=== PATIENT | female | born 1990 | race Caucasian/White ===

== ENCOUNTER 2021-09-13 14:45 | Outpatient (CLI) | payer OTHER | END 2021-09-13 14:46 | disposition home or self-care (01) | LOC: DTY/OP 14:45 | PROVIDERS: ATTEND Surgery | DX: E66.01 Morbid (severe) obesity due to excess calories (principal) | CPT/HCPCS: 97802 ==

== ENCOUNTER 2021-10-16 11:06 | Outpatient (CLI) | payer SELFPAY ==
[2021-10-16 13:35] LABS: #Basophils 0.1 10x3/uL (0.0-0.2); #Eosinphils 0.1 10x3/uL (0.0-0.5); #Monocytes 0.7 10x3/uL (0.0-1.1); #Neutrophils 5.6 10x3/uL (1.5-8.4); %Basophils 0.7 % (0.0-2.0); %Eosinophils 1.4 % (0.0-6.0); %Lymphocytes 25.2 % (18.0-47.0); %Neutrophils 64.2 % (40.0-75.0); Hemoglobin 13.8 g/dL (12.0-15.5); Mean Corpuscular HGB CONC 33.3 g/dL (32.0-36.0); Mean Corpuscular Hemoglobin 29.9 pg (27.0-33.0); Mean Corpuscular Volume 89.8 fl (81.6-98.3); Mean Platelet Volume 10.8 fl (7.4-10.4); Platelet Count 307 10x3/uL (150-450); Red Blood Cell (RBC) Count 4.61 10x6/uL (3.90-5.03); White Blood Cell (WBC) Count 8.7 10x3/uL (3.5-10.5)
[2021-10-16 13:58] LABS: BHCG - Serum Negative (NEGATIVE); Pregs Control Background? CLEAR/WHITE (CLR/WHITE); Pregs Control Bar Appear? YES (CONTROL BAR)
[2021-10-16 14:07] LABS: ALT (SGPT) 52 U/L (8-55); AST (SGOT) 35 U/L (5-34); Albumin 4.6 g/dL (3.5-5.0); Alkaline Phosphatase 60 U/L (40-110); Anion Gap 14 mmol/L (10-20); BUN (Urea Nitrogen) 13 mg/dL (7.0-18.7); Bilirubin, Total 0.5 mg/dL (0.2-1.2); Calc. Creatinine Clearance 0 mL/min (70-130); Calcium 9.8 mg/dL (7.8-10.44); Carbon Dioxide 25 mmol/L (22-29); Chloride 105 mmol/L (98-107); Globulin 3.3 g/dL (2.4-3.5); Glucose 81 mg/dL (70-105); Potassium 4.2 mmol/L (3.5-5.1); Protein, Total 7.9 g/dL (6.0-8.3); Sodium 140 mmol/L (136-145)
[2021-10-16 20:34] LABS: Hemoglobin A1c 5.2 % (4.0-6.0)
[2021-10-17 01:00] LABS: SARS-CoV-2 PCR by NAA Not Detected (NotDetected)
== END 2021-10-16 11:07 | disposition home or self-care (01) ==
LOC: LABBT 11:06
PROVIDERS: ATTEND Surgery
DX: Z01.818 Encounter for other preprocedural examination (principal); Z20.822 Contact with and (suspected) exposure to COVID-19
CPT/HCPCS: 71046; 80053; 83036; 84703; 85025; 93005; 93010; U0003; U0005

== ENCOUNTER 2021-10-21 07:40 | Inpatient (IN) | payer OTHER, SELFPAY ==
[2021-10-18 11:06] VITALS: BMI 50.5
[2021-10-21] MEDS ORDERED: ceFAZolin 2 GM/DEX 5% 100 ML BAG ONE (08:33)
[2021-10-21] MEDS ORDERED: Midazolam HCl 2 mg/2 ml Vial ONE ×2 (09:23→10:49)
[2021-10-21] MEDS ORDERED: Lidocaine 2% Jelly 5 ML TUBE ONE (10:49)
[2021-10-21] MEDS ORDERED: Fentanyl 250 MCG/5 ML VIAL ONE (10:49)
[2021-10-21] MEDS ORDERED: Bupivacaine 0.25% 10 ML VIAL ONE ×2 (10:52)
[2021-10-21] MEDS ORDERED: Lidocaine 1% w/Epinephrine 1:100K 30 ML VIAL ONE (10:52)
[2021-10-21] MEDS ORDERED: Lidocaine 1% PF 5 ML VIAL ONE (11:08)
[2021-10-21] MEDS ORDERED: Dexamethasone 20 MG/5 ML VIAL ONE (11:08)
[2021-10-21] MEDS ORDERED: Glycopyrrolate 0.2 MG/ML 5 ML SYRINGE ONE (11:08)
[2021-10-21] MEDS ORDERED: Rocuronium Bromide 10 MG/ML (10ML VIAL) ONE (11:08)
[2021-10-21] MEDS ORDERED: PROPOFOL 200 MG/20 ML VIAL ONE (11:08)
[2021-10-21] MEDS ORDERED: Ondansetron PF 4 MG/2 ML Vial ONE ×2 (11:08→13:05)
[2021-10-21] MEDS ORDERED: Succinylcholine 200 MG/10 ml SYRINGE FS ONE (11:08)
[2021-10-21] MEDS ORDERED: Dextrose 5% in Water 1,000 ML IV PRN (12:30)
[2021-10-21] MEDS ORDERED: diphenhydrAMINE 50 MG/ML VIAL IVP PRN (12:30)
[2021-10-21] MEDS ORDERED: Promethazine HCl 25 MG/ML VIAL IM PRN ×3 (12:30→13:15)
[2021-10-21] MEDS ORDERED: Dextrose 50% Abboject 50 ML SYRINGE SLOW IVP PRN (12:30)
[2021-10-21] MEDS ORDERED: hydrALAZINE 20 MG/ML VIAL SLOW IVP PRN (12:30)
[2021-10-21] MEDS ORDERED: Hydrocodone-Acetamin 15 ML UDCUP PO PRN (12:30)
[2021-10-21] MEDS ORDERED: Ondansetron PF 4 MG/2 ML Vial IVP PRN (12:30)
[2021-10-21] MEDS ORDERED: Promethazine HCl 25 MG/ML VIAL IVPB PRN (12:32)
[2021-10-21] MEDS ORDERED: Ondansetron HCl/PF 4 MG/2 ML Vial IVP PRN (12:32)
[2021-10-21] MEDS ORDERED: Zolpidem Tartrate 5 MG TAB PO PRN (13:15)
[2021-10-21] MEDS ORDERED: diphenhydrAMINE 25 MG CAP PO PRN (13:15)
[2021-10-21] MEDS ORDERED: Naloxone HCl 0.4 mg/ml Vial IV PRN (13:15)
[2021-10-21] MEDS ORDERED: diphenhydrAMINE 50 MG/ML VIAL IM/IV PRN (13:15)
[2021-10-21] MEDS ORDERED: Morphine Sulfate 100 MG in Dextrose 5% in Water 98 ML IV SCH (13:15)
[2021-10-21] MEDS ORDERED: Fentanyl 100 MCG/2 ML VIAL ONE (13:24)
[2021-10-21] MEDS ORDERED: Promethazine HCl 25 MG/ML VIAL ONE (13:30)
[2021-10-21] MEDS ORDERED: CEFAZOLIN 2 GM in Premix Bag 1 BAG IVPB SCH (16:00)
[2021-10-21] MEDS: Ketorolac Tromethamine 30 MG/ML VIAL IVP SCH ×2 (17:14→23:36)
[2021-10-21] MEDS: Ondansetron PF 4 MG/2 ML Vial IVP PRN (17:14)
[2021-10-21] MEDS: D5 1/2 NS w/20 mEq KCL 1,000 ML IV SCH ×3 (17:15→21:11)
[2021-10-21] MEDS: CEFAZOLIN 2 GM in Premix Bag 1 BAG IVPB SCH (19:36)
[2021-10-22] MEDS: CEFAZOLIN 2 GM in Premix Bag 1 BAG IVPB SCH (03:17)
[2021-10-22] MEDS: Ondansetron PF 4 MG/2 ML Vial IVP PRN (03:17)
[2021-10-22] MEDS: Ketorolac Tromethamine 30 MG/ML VIAL IVP SCH ×2 (05:23→11:08)
[2021-10-22 06:14] LABS: #Lymphocytes 1.6 thou/uL (1.20-3.40); #Neutrophils 10.6 thou/uL (1.40-6.50); %Basophils 0.1 % (0.0-1.0); %Eosinophils 0.1 % (0.0-10.0); %Lymphocytes 11.8 % (21.0-51.0); %Monocytes 7.5 % (0.0-10.0); %Neutrophils 80.5 % (42.0-75.0); Hemoglobin 13.3 g/dL (12.0-16.0); Mean Corpuscular HGB CONC 33.1 g/dL (32.0-36.0); Mean Corpuscular Volume 93.4 fL (78.0-98.0); Mean Platelet Volume 8.1 fL (7.4-10.4); Platelet Count 276 thou/uL (130-400); Red Blood Cell (RBC) Count 4.31 mill/uL (4.20-5.40); White Blood Cell (WBC) Count 13.1 thou/uL (4.8-10.8)
[2021-10-22 06:33] LABS: Anion Gap 12 mmol/L (10-20); BUN (Urea Nitrogen) 9 mg/dL (7.0-18.7); Calc. Creatinine Clearance 240 mL/min (70-130); Calcium 9.1 mg/dL (7.8-10.44); Carbon Dioxide 23 mmol/L (22-29); Chloride 106 mmol/L (98-107); Glucose 101 mg/dL (70-105); Sodium 137 mmol/L (136-145)
[2021-10-22] MEDS: Hydrocodone-Acetamin 15 ML UDCUP PO PRN ×2 (07:42→11:43)
[2021-10-22] MEDS ORDERED: Enoxaparin Sodium 40 MG/0.4 ML SYRINGE SC SCH (09:00)
[2021-10-22] MEDS ORDERED: Pantoprazole 40 MG VIAL IVP SCH (09:00)
[2021-10-22] MEDS: D5 1/2 NS w/20 mEq KCL 1,000 ML IV SCH (11:50)
[2021-10-22 12:07] VITALS: BP 105/69; TEMP 97.8
== END 2021-10-22 13:20 | disposition home or self-care (01) | DRG 621 ==
LOC: SURG A 07:40 → SURG B 15:25
PROVIDERS: ADMIT Surgery; ATTEND Surgery
PROC: 0DB64Z3 Excision of Stomach, Percutaneous Endoscopic Approach, Vertical (ICD-10-PCS; principal; 2021-10-21)
PROC: 0DJ08ZZ Inspection of Upper Intestinal Tract, Via Natural or Artificial Opening Endoscopic (ICD-10-PCS; 2021-10-21)
DX: E66.01 Morbid (severe) obesity due to excess calories (principal); F41.9 Anxiety disorder, unspecified; F32.A Depression, unspecified; Z68.43 Body mass index [BMI] 50.0-59.9, adult; Z90.710 Acquired absence of both cervix and uterus; Z90.49 Acquired absence of other specified parts of digestive tract
CPT/HCPCS: 36415; 80048; 85025; 88307; 88312; 94760; A4649; C9113; J0690; J1100; J1650; J1885; J2250; J2405; J2550; J2704; J3010; J3480; S0020

== ENCOUNTER → 2021-11-04 | Day surgery (SDC) | payer SELFPAY ==
[~2021-11-04] MED LIST: Multivitamins, Adult 10 ML in Sodium Chloride 0.9% 1,000 ML IV SCH; Multivitamins, Adult 10 ML in Sodium Chloride 0.9% 500 ML IV SCH; Multivitamins, Adult 10 ML, Thiamine HCl 100 MG in Sodium Chloride 0.9% 1,000 ML IV SCH; Ondansetron PF 4 MG/2 ML Vial IVP PRN; Ondansetron PF 4 MG/2 ML Vial ONE; Sodium Chloride 0.9% 1,000 ML IV SCH; Thiamine HCl 200 MG/2 ML VIAL SLOW IVP SCH
[2021-11-04 13:26] VITALS: BP 109/66; TEMP 98.2
== END ==
LOC: ONC/OP 12:57
PROVIDERS: ATTEND Surgery
DX: E86.0 Dehydration (principal); Z88.5 Allergy status to narcotic agent
CPT/HCPCS: 96361; 96365; 96366; J2405; J3411; J7030; J7050

== ENCOUNTER 2021-11-13 10:56 | Inpatient (IN) | payer BC, SELFPAY ==
[2021-11-13] MEDS ORDERED: Iopamidol-370 76% 500 ML 1 ML ONE (11:02)
[2021-11-13] MEDS ORDERED: Ondansetron PF 4 MG/2 ML Vial ONE ×3 (11:32→17:12)
[2021-11-13] MEDS ORDERED: Morphine 4 MG/ML VIAL ONE ×3 (11:32→16:13)
[2021-11-13 11:43] LABS: #Basophils 0.1 thou/uL (0.0-0.2); #Eosinphils 0.1 thou/uL (0.0-0.7); #Lymphocytes 2.2 thou/uL (1.20-3.40); #Monocytes 0.5 thou/uL (0.11-0.59); #Neutrophils 3.1 thou/uL (1.40-6.50); %Basophils 0.9 % (0.0-1.0); %Eosinophils 1.7 % (0.0-10.0); %Lymphocytes 36.7 % (21.0-51.0); %Monocytes 8.9 % (0.0-10.0); %Neutrophils 51.8 % (42.0-75.0); Hemoglobin 15.5 g/dL (12.0-16.0); Mean Corpuscular HGB CONC 34.8 g/dL (32.0-36.0); Mean Corpuscular Hemoglobin 32.2 pg (27.0-31.0); Mean Corpuscular Volume 92.4 fL (78.0-98.0); Mean Platelet Volume 9.8 fL (7.4-10.4); Platelet Count 203 thou/uL (130-400); RBC Distribution Width 12.9 % (11.5-14.5); Red Blood Cell (RBC) Count 4.83 mill/uL (4.20-5.40)
[2021-11-13 11:47] LABS: BHCG - Serum Negative (NEGATIVE); Pregs Control Background? CLEAR/WHITE (CLR/WHITE); Pregs Control Bar Appear? YES (CONTROL BAR)
[2021-11-13 12:11] LABS: Bilirubin 1+ (Negative); Blood, Urine Negative (Negative); Clarity Clear (Clear); Glucose, Urine (Dipstick) Normal (Negative); Ketone, Urine Greater than 150 mg/dL (Negative); Leukocyte Negative Leu/uL (Negative); Nitrite Negative (Negative); Protein, Urine (Dipstick) 70 mg/dL (Neg-Trace); RBC/HPF 0-3 HPF (0-3); Specific Gravity, Urine 1.033 (1.002-1.036); Urobilinogen 3 mg/dL (Less than 2)
[2021-11-13 12:12] LABS: Bacteria/HPF 2+ HPF (None Seen)
[2021-11-13 12:15] LABS: ALT (SGPT) 85 U/L (8-55); AST (SGOT) 67 U/L (5-34); Albumin 4.3 g/dL (3.5-5.0); Alkaline Phosphatase 68 U/L (40-110); Anion Gap 22 mmol/L (10-20); BUN (Urea Nitrogen) 6 mg/dL (7.0-18.7); Bilirubin, Total 0.7 mg/dL (0.2-1.2); Calc. Creatinine Clearance 0 mL/min (70-130); Calcium 10.1 mg/dL (7.8-10.44); Carbon Dioxide 18 mmol/L (22-29); Chloride 104 mmol/L (98-107); Globulin 4.3 g/dL (2.4-3.5); Glucose 82 mg/dL (70-105); Lipase 83 U/L (8-78); Potassium 4.7 mmol/L (3.5-5.1); Protein, Total 8.6 g/dL (6.0-8.3); Sodium 139 mmol/L (136-145)
[2021-11-13] MEDS ORDERED: Promethazine HCl 25 MG/ML VIAL ONE (18:04)
[2021-11-13] MEDS ORDERED: Pantoprazole 40 MG VIAL ONE (18:26)
[2021-11-13 19:26] LABS: SARS-CoV-2 NAA Rapid Test Not Detected (NotDetected)
[2021-11-13] MEDS ORDERED: Morphine 4 MG/ML VIAL SLOW IVP PRN (20:44)
[2021-11-13] MEDS ORDERED: Ondansetron PF 4 MG/2 ML Vial IVP PRN (20:45)
[2021-11-13] MEDS ORDERED: Lactated Ringer's 1,000 ML IV SCH (20:45)
[2021-11-13] MEDS ORDERED: Ondansetron ODT 4 MG TAB SL PRN (20:45)
[2021-11-13] MEDS ORDERED: Metoclopramide HCl 10 MG/2 ML VIAL ONE (21:09)
[2021-11-13] MEDS ORDERED: diphenhydrAMINE 50 MG/ML VIAL ONE (21:09)
[2021-11-14] MEDS ORDERED: Sodium Chloride 0.9% 1,000 ML IV SCH (01:00)
[2021-11-14 02:26] LABS: Hemoglobin 12.1 g/dL (12.0-16.0)
[2021-11-14 03:03] LABS: #Lymphocytes 1.3 thou/uL (1.20-3.40); #Monocytes 0.3 thou/uL (0.11-0.59); #Neutrophils 2.8 thou/uL (1.40-6.50); %Basophils 0.7 % (0.0-1.0); %Eosinophils 0.6 % (0.0-10.0); %Lymphocytes 28.1 % (21.0-51.0); %Monocytes 7.7 % (0.0-10.0); %Neutrophils 62.9 % (42.0-75.0); Mean Corpuscular HGB CONC 34.8 g/dL (32.0-36.0); Mean Corpuscular Hemoglobin 32.8 pg (27.0-31.0); Mean Corpuscular Volume 94.5 fL (78.0-98.0); Mean Platelet Volume 9.7 fL (7.4-10.4); Platelet Count 172 thou/uL (130-400); Red Blood Cell (RBC) Count 3.66 mill/uL (4.20-5.40); White Blood Cell (WBC) Count 4.5 thou/uL (4.8-10.8)
[2021-11-14] MEDS ORDERED: Morphine 4 MG/ML VIAL SLOW IVP PRN (03:04)
[2021-11-14] MEDS ORDERED: Multivit, Adult Inj 10 ML VIAL IV SCH (03:15)
[2021-11-14 03:17] LABS: ALT (SGPT) 56 U/L (8-55); AST (SGOT) 34 U/L (5-34); Albumin 3.1 g/dL (3.5-5.0); Alkaline Phosphatase 52 U/L (40-110); Anion Gap 15 mmol/L (10-20); BUN (Urea Nitrogen) 4 mg/dL (7.0-18.7); Bilirubin, Total 0.4 mg/dL (0.2-1.2); Calc. Creatinine Clearance 236 mL/min (70-130); Calcium 8.1 mg/dL (7.8-10.44); Carbon Dioxide 17 mmol/L (22-29); Chloride 111 mmol/L (98-107); Globulin 2.9 g/dL (2.4-3.5); Glucose 86 mg/dL (70-105); Potassium 3.9 mmol/L (3.5-5.1); Sodium 139 mmol/L (136-145)
[2021-11-14] MEDS: Lactated Ringer's 1,000 ML IV SCH ×2 (03:34→05:12)
[2021-11-14] MEDS ORDERED: Multivitamins, Adult 10 ML in Sodium Chloride 0.9% 500 ML IV SCH (04:00)
[2021-11-14 04:18] LABS: #Basophils 0.1 thou/uL (0.0-0.2); #Eosinphils 0.1 thou/uL (0.0-0.7); #Lymphocytes 1.8 thou/uL (1.20-3.40); #Monocytes 0.4 thou/uL (0.11-0.59); #Neutrophils 2.4 thou/uL (1.40-6.50); %Basophils 1.4 % (0.0-1.0); %Eosinophils 1.4 % (0.0-10.0); %Monocytes 8.4 % (0.0-10.0); %Neutrophils 50.9 % (42.0-75.0); Mean Corpuscular HGB CONC 34.9 g/dL (32.0-36.0); Mean Corpuscular Volume 94.8 fL (78.0-98.0); Mean Platelet Volume 9.7 fL (7.4-10.4); Platelet Count 173 thou/uL (130-400); RBC Distribution Width 13.1 % (11.5-14.5); Red Blood Cell (RBC) Count 3.63 mill/uL (4.20-5.40); White Blood Cell (WBC) Count 4.6 thou/uL (4.8-10.8)
[2021-11-14] MEDS ORDERED: Acetaminophen 325 MG TAB PO PRN (04:23)
[2021-11-14] MEDS ORDERED: Acetaminophen 650 MG Suppository PR PRN (04:23)
[2021-11-14 04:35] LABS: Lactic Acid 0.6 mmol/L (0.5-2.2)
[2021-11-14 08:07] LABS: Bilirubin Negative (Negative); Blood, Urine Negative (Negative); Clarity Clear (Clear); Glucose, Urine (Dipstick) Normal (Negative); Ketone, Urine Greater than 150 mg/dL (Negative); Leukocyte Negative Leu/uL (Negative); Nitrite Negative (Negative); Protein, Urine (Dipstick) 30 mg/dL (Neg-Trace); RBC/HPF 0-3 HPF (0-3); Specific Gravity, Urine 1.035 (1.002-1.036); Squamous Epithelial 0-3 HPF (0-3); Urobilinogen Normal mg/dL (Less than 2)
[2021-11-14 08:09] LABS: Bacteria/HPF 1+ HPF (None Seen)
[2021-11-14 08:11] LABS: Urine Culture Reflex Yes Yes
[2021-11-14] MEDS ORDERED: Cosyntropin 250 MCG VIAL SLOW IVP SCH (08:30)
[2021-11-14] MEDS ORDERED: Enoxaparin Sodium 40 MG/0.4 ML SYRINGE ONE (08:58)
[2021-11-14] MEDS ORDERED: Pantoprazole 40 MG VIAL ONE (09:01)
[2021-11-14] MEDS: Enoxaparin Sodium 40 MG/0.4 ML SYRINGE SC SCH (09:04)
[2021-11-14] MEDS: Pantoprazole 40 MG VIAL IVP SCH (09:05)
[2021-11-14] MEDS: Morphine 4 MG/ML VIAL SLOW IVP PRN ×3 (09:07→19:30)
[2021-11-14] MEDS: Ondansetron PF 4 MG/2 ML Vial IVP PRN ×3 (09:07→19:31)
[2021-11-14] MEDS ORDERED: Morphine 4 MG/ML VIAL ONE (11:44)
[2021-11-14 13:37] LABS: #Basophils 0.1 thou/uL (0.0-0.2); #Eosinphils 0.1 thou/uL (0.0-0.7); #Lymphocytes 2.9 thou/uL (1.20-3.40); #Monocytes 0.4 thou/uL (0.11-0.59); #Neutrophils 2.6 thou/uL (1.40-6.50); %Basophils 1.1 % (0.0-1.0); %Eosinophils 1.8 % (0.0-10.0); %Lymphocytes 47.2 % (21.0-51.0); %Monocytes 7.3 % (0.0-10.0); %Neutrophils 42.7 % (42.0-75.0); Hemoglobin 11.9 g/dL (12.0-16.0); Mean Corpuscular HGB CONC 32.3 g/dL (32.0-36.0); Mean Corpuscular Hemoglobin 31.1 pg (27.0-31.0); Mean Corpuscular Volume 96.3 fL (78.0-98.0); Mean Platelet Volume 9.6 fL (7.4-10.4); Platelet Count 163 thou/uL (130-400); RBC Distribution Width 13.1 % (11.5-14.5); Red Blood Cell (RBC) Count 3.81 mill/uL (4.20-5.40); White Blood Cell (WBC) Count 6.1 thou/uL (4.8-10.8)
[2021-11-14 13:55] LABS: Anion Gap 17 mmol/L (10-20); BUN (Urea Nitrogen) Less than 4 mg/dL (7.0-18.7); Calc. Creatinine Clearance 252 mL/min (70-130); Calcium 8.7 mg/dL (7.8-10.44); Carbon Dioxide 16 mmol/L (22-29); Chloride 113 mmol/L (98-107); Glucose 66 mg/dL (70-105); Potassium 3.5 mmol/L (3.5-5.1); Sodium 142 mmol/L (136-145)
[2021-11-14] MEDS: D5 1/2 NS w/20 mEq KCL 1,000 ML IV SCH (16:41)
[2021-11-15] MEDS: Morphine 4 MG/ML VIAL SLOW IVP PRN ×8 (00:07→20:58)
[2021-11-15] MEDS: D5 1/2 NS w/20 mEq KCL 1,000 ML IV SCH ×4 (00:08→20:58)
[2021-11-15] MEDS: Ondansetron PF 4 MG/2 ML Vial IVP PRN ×4 (04:09→20:59)
[2021-11-15 04:24] LABS: Anion Gap 11 mmol/L (10-20); BUN (Urea Nitrogen) Less than 4 mg/dL (7.0-18.7); Calc. Creatinine Clearance 241 mL/min (70-130); Calcium 8.8 mg/dL (7.8-10.44); Carbon Dioxide 22 mmol/L (22-29); Chloride 110 mmol/L (98-107); Glucose 129 mg/dL (70-105); Potassium 3.5 mmol/L (3.5-5.1); Sodium 139 mmol/L (136-145)
[2021-11-15 04:33] LABS: Hemoglobin 11.4 g/dL (12.0-16.0); Mean Corpuscular HGB CONC 32.5 g/dL (32.0-36.0); Mean Corpuscular Hemoglobin 30.6 pg (27.0-31.0); Mean Corpuscular Volume 94.3 fL (78.0-98.0); Mean Platelet Volume 9.5 fL (7.4-10.4); Platelet Count 151 thou/uL (130-400); Red Blood Cell (RBC) Count 3.71 mill/uL (4.20-5.40)
[2021-11-15 05:38] LABS: Band 1 % (5-11); Eosinophils 4 % (0-10); Lymphocytes 48 % (21-51); MDiff Complete? YES; Monocytes 5 % (0-10); Neutrophil 42 % (42-75)
[2021-11-15] MEDS: Enoxaparin Sodium 40 MG/0.4 ML SYRINGE SC SCH (07:27)
[2021-11-15] MEDS: Pantoprazole 40 MG VIAL IVP SCH (07:29)
[2021-11-15] MEDS: Ketorolac Tromethamine 30 MG/ML VIAL IVP PRN ×2 (10:32→23:30)
[2021-11-15] MEDS ORDERED: Iopamidol-370 76% 500 ML 1 ML ONE (14:39)
[2021-11-16] MEDS: Morphine 4 MG/ML VIAL SLOW IVP PRN ×4 (04:24→17:59)
[2021-11-16] MEDS: D5 1/2 NS w/20 mEq KCL 1,000 ML IV SCH ×3 (04:54→21:25)
[2021-11-16 06:49] VITALS: BMI 46.7
[2021-11-16] MEDS: Ketorolac Tromethamine 30 MG/ML VIAL IVP PRN ×3 (07:12→21:19)
[2021-11-16] MEDS: Ondansetron PF 4 MG/2 ML Vial IVP PRN ×3 (08:08→17:59)
[2021-11-16] MEDS: Pantoprazole 40 MG VIAL IVP SCH (08:08)
[2021-11-16] MEDS: Enoxaparin Sodium 40 MG/0.4 ML SYRINGE SC SCH (08:08)
[2021-11-16] MEDS: Lidocaine 5% Patch TD SCH (08:08)
[2021-11-16] MEDS ORDERED: Transdermal Patch Removal TOP SCH (21:00)
[2021-11-17] MEDS: Morphine 4 MG/ML VIAL SLOW IVP PRN (01:04)
[2021-11-17] MEDS: Ondansetron PF 4 MG/2 ML Vial IVP PRN ×3 (01:06→16:11)
[2021-11-17] MEDS: D5 1/2 NS w/20 mEq KCL 1,000 ML IV SCH ×2 (05:31→15:59)
[2021-11-17] MEDS: Ketorolac Tromethamine 30 MG/ML VIAL IVP PRN ×2 (05:39→13:08)
[2021-11-17] MEDS ORDERED: predniSONE 1 MG/ML ML PO SCH (09:00)
[2021-11-17] MEDS: Pantoprazole 40 MG VIAL IVP SCH (09:44)
[2021-11-17] MEDS: Enoxaparin Sodium 40 MG/0.4 ML SYRINGE SC SCH (09:44)
[2021-11-17] MEDS: Lidocaine 5% Patch TD SCH (09:50)
[2021-11-17 12:12] LABS: ALT (SGPT) 54 U/L (8-55); AST (SGOT) 36 U/L (5-34); Albumin 3.2 g/dL (3.5-5.0); Alkaline Phosphatase 54 U/L (40-110); Anion Gap 15 mmol/L (10-20); BUN (Urea Nitrogen) Less than 4 mg/dL (7.0-18.7); Bilirubin, Total 0.7 mg/dL (0.2-1.2); Calc. Creatinine Clearance 240 mL/min (70-130); Calcium 8.8 mg/dL (7.8-10.44); Carbon Dioxide 22 mmol/L (22-29); Chloride 106 mmol/L (98-107); Glucose 103 mg/dL (70-105); Potassium 3.7 mmol/L (3.5-5.1); Protein, Total 6.2 g/dL (6.0-8.3); Sodium 139 mmol/L (136-145)
[2021-11-17 12:37] VITALS: TEMP 97.7
[2021-11-17 14:45] VITALS: BP 125/87
== END 2021-11-17 16:30 | disposition home or self-care (01) | DRG 948 ==
LOC: ERS 10:56 → SURG A 19:59 → OBSVTOIN 11-14 03:06 → CCU 11-14 05:07 → SURG B 11-15 09:32
PROVIDERS: ADMIT Surgery; ATTEND Family Medicine
DX: G89.18 Other acute postprocedural pain (principal); E87.2 Acidosis; Z68.42 Body mass index [BMI] 45.0-49.9, adult; J98.11 Atelectasis; Z20.822 Contact with and (suspected) exposure to COVID-19; I10 Essential (primary) hypertension; I95.9 Hypotension, unspecified; K59.00 Constipation, unspecified; E86.0 Dehydration; E66.01 Morbid (severe) obesity due to excess calories; F41.9 Anxiety disorder, unspecified; F32.A Depression, unspecified; R20.8 Other disturbances of skin sensation; T40.2X5A Adverse effect of other opioids, initial encounter; Z90.49 Acquired absence of other specified parts of digestive tract; Z90.710 Acquired absence of both cervix and uterus; Z88.8 Allergy status to other drugs, medicaments and biological substances; Z98.84 Bariatric surgery status
CPT/HCPCS: 0240U; 36415; 36416; 71045; 74177; 80048; 80053; 80400; 81001; 81003; 81015; 82024; 82533; 83605; 83690; 83735; 84443; 84703; 85025; 87040; 87086; 87149; 96365; 96375; 96376; C9113; G0378; J0834; J1200; J1650; J1885; J2270; J2405; J2550; J2765; J3411; J3480; J7030; J7120; P9045; Q9967

== ENCOUNTER 2021-11-29 10:41 | Emergency (ER) | payer BC ==
[2021-11-29] MEDS ORDERED: Morphine 4 MG/ML VIAL ONE ×2 (11:15→13:13)
[2021-11-29 11:27] LABS: #Basophils 0.1 thou/uL (0.0-0.2); #Eosinphils 0.2 thou/uL (0.0-0.7); #Lymphocytes 2.6 thou/uL (1.20-3.40); #Monocytes 0.6 thou/uL (0.11-0.59); #Neutrophils 4.9 thou/uL (1.40-6.50); %Basophils 1.1 % (0.0-1.0); %Eosinophils 1.9 % (0.0-10.0); %Lymphocytes 31.1 % (21.0-51.0); %Monocytes 7.6 % (0.0-10.0); %Neutrophils 58.2 % (42.0-75.0); Hemoglobin 15.6 g/dL (12.0-16.0); Mean Corpuscular HGB CONC 32.9 g/dL (32.0-36.0); Mean Corpuscular Hemoglobin 31.1 pg (27.0-31.0); Mean Corpuscular Volume 94.5 fL (78.0-98.0); Mean Platelet Volume 9.1 fL (7.4-10.4); Platelet Count 224 thou/uL (130-400); RBC Distribution Width 12.8 % (11.5-14.5); Red Blood Cell (RBC) Count 5.02 mill/uL (4.20-5.40); White Blood Cell (WBC) Count 8.4 thou/uL (4.8-10.8)
[2021-11-29 11:40] LABS: BHCG - Serum Negative (NEGATIVE); Pregs Control Background? CLEAR/WHITE (CLR/WHITE); Pregs Control Bar Appear? YES (CONTROL BAR)
[2021-11-29 11:47] LABS: ALT (SGPT) 74 U/L (8-55); AST (SGOT) 51 U/L (5-34); Albumin 4.5 g/dL (3.5-5.0); Alkaline Phosphatase 73 U/L (40-110); Anion Gap 23 mmol/L (10-20); BUN (Urea Nitrogen) 10 mg/dL (7.0-18.7); Calc. Creatinine Clearance 0 mL/min (70-130); Calcium 10.1 mg/dL (7.8-10.44); Carbon Dioxide 16 mmol/L (22-29); Chloride 102 mmol/L (98-107); Globulin 4.3 g/dL (2.4-3.5); Glucose 93 mg/dL (70-105); Lipase 67 U/L (8-78); Magnesium 1.9 mg/dL (1.6-2.6); Potassium 3.8 mmol/L (3.5-5.1); Protein, Total 8.8 g/dL (6.0-8.3); Sodium 137 mmol/L (136-145)
[2021-11-29 14:19] LABS: Lactic Acid 1.5 mmol/L (0.5-2.2)
[2021-11-29] MEDS ORDERED: Ondansetron PF 4 MG/2 ML Vial ONE (15:04)
== END 2021-11-29 17:30 | disposition home or self-care (01) ==
LOC: ERS 10:41
DX: K56.49 Other impaction of intestine (principal); K92.1 Melena; I10 Essential (primary) hypertension
CPT/HCPCS: 36415; 74176; 80053; 83605; 83690; 83735; 84703; 85025; 96374; 96375; 96376; J2270; J2405

== ENCOUNTER 2021-12-03 08:27 | Outpatient (CLI) | payer BC | END 2021-12-03 08:28 | disposition home or self-care (01) | LOC: RAD 08:27 | PROVIDERS: ATTEND Surgery | DX: R10.12 Left upper quadrant pain (principal); K59.00 Constipation, unspecified | CPT/HCPCS: 74283 ==

== ENCOUNTER 2024-04-06 13:17 | Outpatient (CLI) | payer OTHER ==
[2024-04-06 14:54] LABS: #Basophils 0.05 10x3/uL (0.0-0.2); #Eosinphils 0.12 10x3/uL (0.0-0.5); #Monocytes 0.45 10x3/uL (0.0-1.1); #Neutrophils 3.94 10x3/uL (1.5-8.4); %Basophils 0.6 % (0.0-2.0); %Eosinophils 1.6 % (0.0-6.0); %Lymphocytes 40.5 % (18.0-47.0); %Monocytes 5.8 % (0.0-10.0); %Neutrophils 51.2 % (40.0-75.0); Hemoglobin 12.7 g/dL (12.0-15.5); Mean Corpuscular HGB CONC 33.4 g/dL (32.0-36.0); Mean Corpuscular Hemoglobin 31.2 pg (27.0-33.0); Mean Corpuscular Volume 93.4 fL (81.6-98.3); Mean Platelet Volume 10.1 fL (7.4-10.4); Platelet Count 257 10x3/uL (150-450); RBC Distribution Width 12.1 % (11.5-14.5); Red Blood Cell (RBC) Count 4.07 10x6/uL (3.90-5.03); White Blood Cell (WBC) Count 7.7 10x3/uL (3.5-10.5)
[2024-04-06 15:17] LABS: Anion Gap 14 mmol/L (10-20); BUN (Urea Nitrogen) 19 mg/dL (7.0-18.7); Calc. Creatinine Clearance 0 mL/min (70-130); Calcium 9.6 mg/dL (7.8-10.44); Carbon Dioxide 25 mmol/L (22-29); Chloride 106 mmol/L (98-107); Estimated GFR 98; Glucose 84 mg/dL (70-105); Potassium 4.5 mmol/L (3.5-5.1); Sodium 140 mmol/L (136-145)
== END 2024-04-06 13:18 | disposition home or self-care (01) ==
LOC: LABBT 13:17
PROVIDERS: ATTEND Specialist
DX: Z01.812 Encounter for preprocedural laboratory examination (principal); M79.3 Panniculitis, unspecified
CPT/HCPCS: 80048; 85025

== ENCOUNTER 2024-05-05 20:21 | Emergency (ER) | payer OTHER ==
[2024-05-05 21:14] LABS: #Basophils 0.03 10x3/uL (0.0-0.2); %Basophils 0.4 % (0.0-1.0); %Eosinophils 3.6 % (0.0-10.0); %Lymphocytes 51.7 % (21.0-51.0); %Monocytes 7.2 % (0.0-10.0); Hematocrit 37.7 % (36.0-47.0); Hemoglobin 12.6 g/dL (12.0-16.0); Mean Corpuscular HGB CONC 33.4 g/dL (32.0-36.0); Mean Corpuscular Hemoglobin 31.6 pg (27.0-31.0); Mean Corpuscular Volume 94.5 fL (78.0-98.0); Platelet Count 219 10x3/uL (130-400); RBC Distribution Width 12.1 % (11.5-14.5); Red Blood Cell (RBC) Count 3.99 mill/uL (4.20-5.40)
[2024-05-05 21:27] LABS: Anion Gap 12 mmol/L (10-20); BUN (Urea Nitrogen) 16 mg/dL (7.0-18.7); Calc. Creatinine Clearance 0 mL/min (70-130); Calcium 9.5 mg/dL (7.8-10.44); Carbon Dioxide 24 mmol/L (22-29); Chloride 108 mmol/L (98-107); Estimated GFR 99; Glucose 90 mg/dL (70-105); Sodium 140 mmol/L (136-145)
== END 2024-05-05 21:40 | disposition home or self-care (01) ==
LOC: ERS 20:21
DX: L03.316 Cellulitis of umbilicus (principal); Z55.6 Problems related to health literacy
CPT/HCPCS: 36415; 80048; 85025; 99283

== ENCOUNTER 2024-05-10 10:27 | Emergency (ER) | payer OTHER ==
[2024-05-10 12:58] LABS: #Basophils 0.04 10x3/uL (0.0-0.2); %Basophils 0.6 % (0.0-1.0); %Eosinophils 1.2 % (0.0-10.0); %Lymphocytes 33.9 % (21.0-51.0); %Monocytes 5.9 % (0.0-10.0); %Neutrophils 58.2 % (42.0-75.0); Hematocrit 39.1 % (36.0-47.0); Hemoglobin 13.3 g/dL (12.0-16.0); Mean Corpuscular Hemoglobin 30.9 pg (27.0-31.0); Mean Corpuscular Volume 90.9 fL (78.0-98.0); Mean Platelet Volume 11.9 fL (7.4-10.4); Platelet Count 232 10x3/uL (130-400); RBC Distribution Width 12.6 % (11.5-14.5)
[2024-05-10] MEDS ORDERED: Iopamidol-370 76% 500 ML MDV (1 ML CHARGE) ONE (13:07)
[2024-05-10] MEDS ORDERED: Ondansetron PF 4 MG/2 ML Vial ONE (13:35)
[2024-05-10 14:09] LABS: ALT (SGPT) 16 U/L (8-55); AST (SGOT) 20 U/L (5-34); Albumin 4.3 g/dL (3.5-5.0); Alkaline Phosphatase 64 U/L (40-110); Anion Gap 17 mmol/L (10-20); BUN (Urea Nitrogen) 13 mg/dL (7.0-18.7); Bilirubin, Total 0.5 mg/dL (0.2-1.2); Calc. Creatinine Clearance 0 mL/min (70-130); Calcium 9.8 mg/dL (7.8-10.44); Carbon Dioxide 23 mmol/L (22-29); Chloride 105 mmol/L (98-107); Estimated GFR 95; Globulin 3.6 g/dL (2.4-3.5); Glucose 76 mg/dL (70-105); Potassium 3.7 mmol/L (3.5-5.1); Protein, Total 7.9 g/dL (6.0-8.3); Sodium 141 mmol/L (136-145)
== END 2024-05-10 15:00 | disposition home or self-care (01) ==
LOC: ERS 10:27
DX: T81.31XA Disruption of external operation (surgical) wound, not elsewhere classified, initial encounter (principal); L76.34 Postprocedural seroma of skin and subcutaneous tissue following other procedure
CPT/HCPCS: 36415; 74177; 80053; 85025; 87070; 87077; 87205; 96374; J2405; Q9967